=== PATIENT | male | born 1990 | race Caucasian/White ===

== ENCOUNTER 2024-06-10 15:36 | Emergency (ER) | payer BC ==
[~2024-06-10] VITALS: Ht 180.3 cm; Wt 72.6 kg
[2024-06-10 15:51] VITALS: BP 153/85; PULSE 56; RESP 16; TEMP 97.8; O2SAT 100
[2024-06-10] MEDS: BACITRACIN OINT 500 UNITS/GM PKT TP ONE (18:19)
[2024-06-10] MEDS ORDERED: CEPH-588 PO (18:22)
[2024-06-10] MEDS ORDERED: BACI-418 TP (18:22)
[2024-06-10 18:45] VITALS: BP 148/82; PULSE 66; RESP 16; TEMP 98.1; O2SAT 100
== END 2024-06-10 18:45 | disposition home or self-care (01) ==
LOC: MED 15:36
DX: S61.512A Laceration without foreign body of left wrist, initial encounter (principal); F43.0 Acute stress reaction; F19.20 Other psychoactive substance dependence, uncomplicated; F14.90 Cocaine use, unspecified, uncomplicated; Z79.899 Other long term (current) drug therapy; X58.XXXA Exposure to other specified factors, initial encounter; Y93.89 Activity, other specified; Y92.89 Other specified places as the place of occurrence of the external cause; Y99.8 Other external cause status
CPT/HCPCS: 99283